=== PATIENT | female | born 1970 | race American Indian/Alaskan Native ===

== ENCOUNTER 2019-02-22 14:58 | Emergency (ER) | payer BC, OTHER ==
[2019-02-22] MEDS ORDERED: MORPHINE IV ONE (15:08)
[2019-02-22] MEDS ORDERED: LABETALOL IV ONE ×2 (15:08→15:09)
[2019-02-22] MEDS ORDERED: MORPHINE ONE (15:10)
[2019-02-22 15:24] LABS: Basophils # (Auto) 0.1 K/mm3 (0.0-0.1); Basophils % (Auto) 0.8 % (0.0-1.8); Eosinophils # (Auto) 0.4 K/mm3 (0.0-0.4); Eosinophils % (Auto) 5.9 % (0.0-4.3); Hematocrit 39.6 % (30.3-42.9); Hemoglobin 13.7 gm/dl (10.1-14.3); Lymphocytes # (Auto) 2.5 K/mm3 (1.2-5.4); Lymphocytes % (Auto) 34.9 % (13.4-35.0); Mean Corpuscular HGB Conc 35 % (30-34); Mean Corpuscular Volume 81 fl (79-97); Monocytes # (Auto) 0.6 K/mm3 (0.0-0.8); Monocytes % (Auto) 8.9 % (0.0-7.3); Platelet Count 245 K/mm3 (140-440); Red Blood Count 4.88 M/mm3 (3.65-5.03); Red Cell Distribution Width 14.2 % (13.2-15.2)
--- NOTE | 2019-02-22 15:34 | Emergency Department Report ---
ED Headache HPI - General Chief Complaint: Headache Stated Complaint: HEADACHE/DIZZY Time Seen by Provider: 02/22/19 15:07 - History of Present Illness Initial Comments: Patient is a 48-year-old female with a past medical history of hypertension who is presenting with headache times one hour. Patient states she did miss a dose of her blood pressure medications. Patient states the headache is a 10 out of 10 in global. She has a history of aneurysms that were fixed with coils. Patient is unable to give a timeframe for this surgery. Patient denies nausea vomiting light sensitivity fevers or chills at this time. Patient states the only other symptom she has global weakness and inability to move arms or legs. Allergies/Adverse Reactions: Allergies hydromorphone [From Dilaudid] Allergy (Verified 02/22/19 15:29) Hives ED Review of Systems ROS: Stated complaint: HEADACHE/DIZZY Other details as noted in HPI Comment: All other systems reviewed and negative ED Past Medical Hx - Social History Smoking Status: Never Smoker Substance Use Type: Alcohol ED Physical Exam - General Limitations: No Limitations General appearance: alert, anxious, in distress - Head Head exam: Present: atraumatic, normocephalic - Eye Eye exam: Present: normal appearance, PERRL, EOMI - ENT ENT exam: Present: mucous membranes moist - Neck Neck exam: Present: normal inspection - Respiratory Respiratory exam: Present: normal lung sounds bilaterally. Absent: respiratory distress, wheezes, rales, rhonchi - Cardiovascular Cardiovascular Exam: Present: regular rate, normal rhythm, normal heart sounds. Absent: systolic murmur, diastolic murmur, rubs, gallop - GI/Abdominal GI/Abdominal exam: Present: soft, normal bowel sounds. Absent: distended, tenderness, guarding, rebound - Extremities Exam Extremities exam: Present: normal inspection - Back Exam Back exam: Present: normal inspection - Neurological Exam Neurological exam: Present: alert, oriented X3 - Psychiatric Psychiatric exam: Present: normal affect, normal mood - Skin Skin exam: Present: warm, dry, intact, normal color. Absent: rash ED Course Vital Signs 02/22/19 02/22/19 02/22/19 15:00 15:04 15:15 Temperature Pulse Rate 73 79 94 H Respiratory 13 25 H 17 Rate Blood Pressure 220/108 204/117 O2 Sat by Pulse 100 100 100 Oximetry 02/22/19 02/22/19 02/22/19 15:30 16:00 16:03 Temperature 98.5 F Pulse Rate 89 86 Respiratory 12 13 Rate Blood Pressure 185/115 181/104 O2 Sat by Pulse 96 98 Oximetry 02/22/19 16:06 Temperature Pulse Rate Respiratory 18 Rate Blood Pressure O2 Sat by Pulse 96 Oximetry ED Medical Decision Making - Lab Data Result diagrams: 02/22/19 15:14 02/22/19 15:14 - Radiology Data Etiology of the head without contrast shows no acute process. CT angiogram of the head and neck also shows no evidence of any current aneurysm or blood leakage. - Medical Decision Making Patient presented with severe headache and inability to move her arms and legs. Patient was given pain management and labetalol. Blood pressure did improve to 170s. Patient states her symptoms have completely resolved at this time she can move her arms and legs bilaterally. Patient is states her headache is improved and she is smiling in the room at the time of discharge. Critical care attestation.: If time is entered above; I have spent that time in minutes in the direct care of this critically ill patient, excluding procedure time. ED Disposition Clinical Impression: Hypertensive urgency Headache Qualifiers: Headache type: unspecified Headache chronicity pattern: acute headache Intractability: not intractable Qualified Code(s): R51 - Headache Disposition: [facility] IP Is pt being admited?: No Does the pt Need Aspirin: No Condition: Stable Instructions: Hypertension (ED) Referrals: MINH ANDERSON MD [Staff Physician] - 3-5 Days Forms: Work/School Release Form(ED) Time of Disposition: 18:38
[2019-02-22 15:36] LABS: INR 0.91 (0.87-1.13)
[2019-02-22 15:37] LABS: Thrombin Time 16.2 Sec. (15.1-19.6)
[2019-02-22 15:41] LABS: Partial Thromboplastin Time 31.8 Sec. (24.2-36.6)
[2019-02-22 15:53] LABS: Creatine Kinase MB 1.3 ng/mL (0.0-4.0)
[2019-02-22 15:54] LABS: BUN/Creatinine Ratio 13; Blood Urea Nitrogen 13 mg/dL (7-17); Calcium 9.9 mg/dL (8.4-10.2); Hemolysis Index 13
--- NOTE | 2019-02-22 16:07 | Cat Scan Report ---
CT head/brain wo con INDICATION / CLINICAL INFORMATION: 48 years Female; Stroke symptoms. TECHNIQUE: Routine CT head without contrast. All CT scans at this location are performed using CT dos e reduction for ALARA by means of automated exposure control. Beam hardening artifact seen with aneur ysm coils. COMPARISON: None. FINDINGS: BRAIN / INTRACRANIAL CONTENTS: No acute hemorrhage, mass effect, midline shift, hydrocephalus, or acu te, large territorial infarct. No chronic infarct or focal atrophy. No significant white matter abnor mality. CRANIOCERVICAL JUNCTION: No significant abnormality. ORBITS: No significant abnormality of visualized orbits. SINUSES / MASTOIDS: There is partial opacification of the inferior mastoids on the right, as well as the right middle ear cavity. ADDITIONAL FINDINGS: Aneurysm coiling suggested in the suprasellar cistern rightward of midline-pleas e clinically correlate. IMPRESSION: 1. No focal mass, hemorrhage, hydrocephalus, or acute, large territorial infarct. Signer Name: Calderon Pan MD, III Signed: 02/22/2019 4:03 PM Workstation Name: [id number]
[2019-02-22] MEDS ORDERED: TORADOL IV ONE (16:12)
--- NOTE | 2019-02-22 16:41 | Cat Scan Report ---
CT angio head INDICATION / CLINICAL INFORMATION: 48 years Female; headache hx of aneurysm. TECHNIQUE: Thin cut axial images obtained through the head during IV bolus contrast administration. S agittal, coronal, and 3 plane MIP reconstructions performed by the technologist. NASCET type criteria used evaluate stenoses. Automated exposure control utilized for radiation reduction purposes. COMPARISON: None available. FINDINGS: Beam hardening artifact seen from aneurysm coiling in the suprasellar cistern rightward of midline. INTERNAL CAROTID ARTERIES: No significant narrowing appreciated. VERTEBROBASILAR SYSTEM: No significant narrowing appreciated. DISTAL BRANCHES: Distal branches of the anterior, middle, and posterior cerebral arteries are fairly symmetric in appearance and number. There may be focal areas of mild narrowing in the M1 segments dereck aterally, as well as the A1 segments. No branch occlusion appreciated. ANEURYSM: None identified. ADDITIONAL FINDINGS: Remainder of the surrounding soft tissues are grossly normal. IMPRESSION: Focal areas of mild narrowing identified as described above. No large branch occlusion appreciated. Signer Name: Calderon Pan MD, III Signed: 02/22/2019 4:37 PM Workstation Name: [id number]
--- NOTE | 2019-02-22 17:07 | Cat Scan Report ---
CT angio neck INDICATION / CLINICAL INFORMATION: 48 years Female; headache hx of aneurysm. TECHNIQUE: Thin cut axial images obtained through the head during IV bolus contrast administration. S agittal, coronal, and 3 plane MIP reconstructions performed by the technologist. NASCET type criteria used evaluate stenoses. All CT scans at this location are performed using CT dose reduction for ALAR A by means of automated exposure control. There is artifact seen from dense contrast in the venous sy stem on the left. COMPARISON: None available. FINDINGS: Hyper dense contrast seen in the left internal jugular vein and left subclavian vein, as well as surr ounding peripheral veins. Findings may be related to narrowing of the left brachiocephalic vein where the vessel passes anterior to the ascending aorta. Note, contrast was presumably injected in the lef t upper extremity. Scattered areas of mild atherosclerotic disease noted. ARCH: Normal aortic arch branching suggested. CAROTID ARTERIES: The visualized common and internal carotid arteries are widely patent. VERTEBRAL ARTERIES: Codominant vertebral system seen. There is a focal area of moderate narrowing in the right vertebral artery at the C6 level. ADDITIONAL FINDINGS: There may be disc disease at C4-5 which encroaches upon the cervical cord. Follo w-up with MRI, as clinically warranted. There is partial opacification of the inferior mastoids on the right. IMPRESSION: 1. Area of narrowing seen in the right vertebral artery, as described above. 2. Some degree of narrowing suggested in the left brachiocephalic vein. Signer Name: Calderon Pan MD, III Signed: 02/22/2019 5:03 PM Workstation Name: [id number]
--- NOTE | 2019-02-22 18:26 | Emergency Department Report ---
ED Neuro Deficit HPI - General Chief Complaint: Headache Stated Complaint: HEADACHE/DIZZY Time Seen by Provider: 02/22/19 15:07 Source: EMS Mode of arrival: Stretcher Limitations: No Limitations - History of Present Illness Initial Comments: [facility] Date of Service: 02/22/2019 15:11:34 Impression: Headache Comments: Patient presents with headache, and diffuse focal weakness, hesitant speech , and no clear indication of focal deficit to suggest acute ischemic stroke. She is therefore not candidate for thrombolytics. CTA negative for acute Large Vessel Occlusive thrombus. Would recommend non-vasoactive treatment for treatment of headache. Patient is being admitted for further work up and headache treatment. In house neurology to follow up as routine follow up. Please call with questions. Metrics: Last Known Well: 02/22/2019 14:00:00 [employer] Notification Time: 02/22/2019 15:10:17 Arrival Time: 02/22/2019 15:08:00 Stamp Time: 02/22/2019 15:11:34 Time First Login Attempt: 02/22/2019 15:13:25 Video Start Time: 02/22/2019 15:13:25 Symptoms: Headache Patient is not a candidate for tPA. Patient was not deemed candidate for tPA thrombolytics because of Symptoms not clearly those of acute stroke. . Video End Time: 02/22/2019 15:28:00 CT head showed no acute hemorrhage or acute core infarct. Advanced imaging was reviewed, No Indication of Large Vessel Occlusive Thrombus. ER physician notified of the decision on thrombolytics management. Our recommendations are outlined below. Recommendations: Antiplatelet Therapy Recommended Sign Out: Discussed with Emergency Department Provider History of Present Illness: Patient is a 48 years old Female. Patient was brought by EMS for symptoms of Headache Started having headache about one hour ago. She describes headache, as severe vertex pain. She states that she has had diffuse generalized weakness associated with this. There is history of cerebral aneurysm. Apparently, she presented with complaints of headache, and had a work up that included spinal tap which as per her report, "showed blood" . History of migraine chronic daily to every other day, but none in the severity of this headache. CT head showed no acute hemorrhage or acute core infarct. Examination: 1A: Level of Consciousness - Alert; keenly responsive + 0 1B: Ask Month and Age - Both Questions Right + 0 1C: Blink Eyes & Squeeze Hands - Performs Both Tasks + 0 2: Test Horizontal Extraocular Movements - Normal + 0 3: Test Visual [place]rell - No Visual Loss + 0 4: Test Facial Palsy (Use Grimace if Obtunded) - Normal symmetry + 0 5A: Test Left Arm Motor Drift - No Drift for 10 Seconds + 0 inconsistencies, drifts on first attempt 5B: Test Right Arm Motor Drift - No Drift for 10 Seconds + 0 inconsistencies, drifts on first attempt 6A: Test Left Leg Motor Drift - No Drift for 5 Seconds + 0 inconsistencies, drifts on first attempt 6B: Test Right Leg Motor Drift - No Drift for 5 Seconds + 0 inconsistencies, drifts on first attempt 7: Test Limb Ataxia (FNF/Heel-[place]) - No Ataxia + 0 8: Test Sensation - Normal; No sensory loss + 0 9: Test Language/Aphasia - Normal; No aphasia + 0 hesitant speech. 10: Test Dysarthria - Normal + 0 11: Test Extinction/Inattention - No abnormality + 0 NIHSS Score: 0 Patient was informed the Neurology Consult would happen via TeleHealth consult by way of interactive audio and video telecommunications and consented to receiving care in this manner. Due to the immediate potential for life-threatening deterioration due to underlying acute neurologic illness, I spent 35 minutes providing critical care. This time includes time for face to face visit via telemedicine, review of medical records, imaging studies and discussion of findings with providers, the patient and/or family. Terry Serra MD [employer] - Related Data Allergies/Adverse Reactions: Allergies Allergy/AdvReac Type Severity Reaction Status Date / Time hydromorphone [From Dilaudid] Allergy Hives Verified 02/22/19 15:29 ED Review of Systems ROS: Stated complaint: HEADACHE/DIZZY Other details as noted in HPI ED Past Medical Hx - Social History Smoking Status: Never Smoker Substance Use Type: Alcohol ED Neuro Physical Exam - General Limitations: No Limitations General appearance: alert, anxious, in distress Suspected Stroke: Yes - NIHSS Assessment Interval: Baseline 1a. Level of Consciousness: alert/keenly responsive 1b. LOC Questions: answers both correctly 1c. LOC Commands: performs tasks correctly 2. Best Gaze: normal 3. Visual: no visual loss 4. Facial Palsy: normal symmetrical movement 5b. Motor Arm Right: no drift 5a. Motor Arm Left: no drift 6a. Motor Leg Left: no drift 6b. Motor Leg Right: no drift 7. Limb Ataxia: absent 8. Sensory: normal 9. Best Language: no aphasia 10. Dysarthria: normal 11. Extinction/Inattention: no abnormality Total Score: 0 Stroke Severity: No Stroke Symptoms ED Course Vital Signs 02/22/19 02/22/19 02/22/19 15:00 15:04 15:15 Temperature Pulse Rate 73 79 94 H Respiratory 13 25 H 17 Rate Blood Pressure 220/108 204/117 O2 Sat by Pulse 100 100 100 Oximetry 02/22/19 02/22/19 02/22/19 15:30 16:00 16:03 Temperature 98.5 F Pulse Rate 89 86 Respiratory 12 13 Rate Blood Pressure 185/115 181/104 O2 Sat by Pulse 96 98 Oximetry 02/22/19 16:06 Temperature Pulse Rate Respiratory 18 Rate Blood Pressure O2 Sat by Pulse 96 Oximetry - Lab Data Result diagrams: 02/22/19 15:14 02/22/19 15:14 Lab Results 02/22/19 02/22/19 02/22/19 Range/Units 15:14 15:14 15:14 WBC 7.0 (4.5-11.0) K/mm3 RBC 4.88 (3.65-5.03) M/mm3 Hgb 13.7 (10.1-14.3) gm/dl Hct 39.6 (30.3-42.9) % MCV 81 (79-97) fl MCH 28 (28-32) pg MCHC 35 H (30-34) % RDW 14.2 (13.2-15.2) % Plt Count 245 (140-440) K/mm3 Lymph % (Auto) 34.9 (13.4-35.0) % [place] % (Auto) 8.9 H (0.0-7.3) % Eos % (Auto) 5.9 H (0.0-4.3) % Baso % (Auto) 0.8 (0.0-1.8) % Lymph # 2.5 (1.2-5.4) K/mm3 [place] # 0.6 (0.0-0.8) K/mm3 Eos # 0.4 (0.0-0.4) K/mm3 Baso # 0.1 (0.0-0.1) K/mm3 Seg Neutrophils % 49.5 (40.0-70.0) % Seg Neutrophils # 3.5 (1.8-7.7) K/mm3 PT 12.0 L (12.2-14.9) Sec. INR 0.91 (0.87-1.13) APTT 31.8 (24.2-36.6) Sec. Thrombin Time 16.2 (15.1-19.6) Sec. Sodium 140 (137-145) mmol/L Potassium 4.4 (3.6-5.0) mmol/L Chloride 101.6 (98-107) mmol/L Carbon Dioxide 23 (22-30) mmol/L Anion Gap 20 mmol/L BUN 13 (7-17) mg/dL Creatinine 1.0 (0.7-1.2) mg/dL Estimated GFR 59 ml/min BUN/Creatinine Ratio 13 % Glucose 94 (65-100) mg/dL Calcium 9.9 (8.4-10.2) mg/dL Total Creatine Kinase 144 H (30-135) units/L CK-MB (CK-2) 1.3 (0.0-4.0) ng/mL CK-MB (CK-2) Rel Index 0.9 (0-4) Troponin T < 0.010 (0.00-0.029) ng/mL Critical care attestation.: If time is entered above; I have spent that time in minutes in the direct care of this critically ill patient, excluding procedure time. ED Disposition Clinical Impression: Headache Disposition: DC/[facility] IP Is pt being admited?: Yes Condition: Stable
[2019-02-22 18:43] VITALS: BP 179/87
== END 2019-02-22 19:05 | disposition short-term general hospital (02) ==
LOC: ED 14:58
DX: I16.0 Hypertensive urgency (principal); I10 Essential (primary) hypertension; Z88.5 Allergy status to narcotic agent
CPT/HCPCS: 36415; 70450; 70496; 70498; 80048; 82550; 82553; 84484; 85025; 85610; 85670; 85730; 93005; 93010; 96374; 96375; 99285; J1885; J2270; Q9967